=== PATIENT | female | born 1985 | race Caucasian/White ===

== ENCOUNTER 2017-02-11 07:12 | Inpatient (IN) | payer OTHER ==
[2017-02-11] MEDS ORDERED: PRENATAL VITAM1 EAC5 PO (07:56)
[2017-02-11 08:20] LABS: BASO % 0.2 % (0-2); EOS % 1.1 % (0-7); EOSINOPHIL ABSOLUTE COUNT 0.1 tho/cmm (0.0-0.7); HCT-HEMATOCRIT 31.1 % (34.0-49.0); HGB-HEMOGLOBIN 10.6 gm/dl (12.0-15.5); IMMATURE GRANULOCYTES ABSOLUTE 0.04 tho/cmm (0-0.03); IMMATURE GRANULOCYTES PERCENT 0.4 % (0-0.3); LYMPH % 20.4 % (20-45); LYMPH ABSOLUTE COUNT 2.3 tho/cmm (0.8-4.5); MCH (MEAN CORPUSCULAR HGB) 29.9 pg (28.0-32.0); MCHC MEAN CORPUSCULAR HGB CONC 34.1 % (32.0-36.0); MCV (MEAN CELL VOLUME) 87.6 fl (82.0-96.0); MEAN PLATELET VOLUME 8.7 cmc (9.4-12.4); MONO % 6.8 % (0-12); MONOCYTE ABSOLUTE COUNT 0.8 tho/cmm (0.0-1.2); NEUTROPHIL ABSOLUTE COUNT 7.9 tho/cmm (1.6-8.0); NEUTROPHIL-AUTOMATED 7.9 tho/cmm (1.6-8.0); NEUTROPHILS % 71.1 % (40-80); PLATELET COUNT 234 tho/cmm (150-450); RED BLOOD COUNT 3.55 mil/cmm (4.00-5.20); RED CELL DISTRIBUTION WIDTH 13.1 % (12.4-16.4)
[2017-02-12 06:21] LABS: BASO % 0.1 % (0-2); EOS % 0.6 % (0-7); EOSINOPHIL ABSOLUTE COUNT 0.1 tho/cmm (0.0-0.7); HCT-HEMATOCRIT 27.9 % (34.0-49.0); HGB-HEMOGLOBIN 9.3 gm/dl (12.0-15.5); IMMATURE GRANULOCYTES ABSOLUTE 0.04 tho/cmm (0-0.03); IMMATURE GRANULOCYTES PERCENT 0.2 % (0-0.3); LYMPH ABSOLUTE COUNT 3.3 tho/cmm (0.8-4.5); MCH (MEAN CORPUSCULAR HGB) 29.8 pg (28.0-32.0); MCHC MEAN CORPUSCULAR HGB CONC 33.3 % (32.0-36.0); MCV (MEAN CELL VOLUME) 89.4 fl (82.0-96.0); MONO % 9.6 % (0-12); MONOCYTE ABSOLUTE COUNT 1.6 tho/cmm (0.0-1.2); NEUTROPHIL ABSOLUTE COUNT 11.4 tho/cmm (1.6-8.0); NEUTROPHIL-AUTOMATED 11.4 tho/cmm (1.6-8.0); NEUTROPHILS % 69.5 % (40-80); PLATELET COUNT 277 tho/cmm (150-450); RED BLOOD COUNT 3.12 mil/cmm (4.00-5.20); RED CELL DISTRIBUTION WIDTH 13.4 % (12.4-16.4); WHITE BLOOD COUNT 16.4 tho/cmm (4.0-10.0)
[2017-02-12] MEDS ORDERED: MOTRIN IB200 M1 PO (19:16)
[2017-02-12] MEDS ORDERED: PERCOCET 5-3251 EACH PO (19:17)
[2017-02-13] MEDS ORDERED: IBUPROFEN800 M1 PO (11:25)
== END 2017-02-13 12:40 | DRG 765 ==
LOC: LDR 07:12 → OBGD 11:15
PROVIDERS: ADMIT Obstetrics & Gynecology
PROC: 10D00Z1 Extraction of Products of Conception, Low, Open Approach (ICD-10-PCS; principal; 2017-02-11)
DX: O34.211 Maternal care for low transverse scar from previous cesarean delivery (principal); O23.43 Unspecified infection of urinary tract in pregnancy, third trimester; Z37.0 Single live birth; Z3A.39 39 weeks gestation of pregnancy; B95.2 Enterococcus as the cause of diseases classified elsewhere; O24.420 Gestational diabetes mellitus in childbirth, diet controlled; O99.334 Smoking (tobacco) complicating childbirth; F17.210 Nicotine dependence, cigarettes, uncomplicated
CPT/HCPCS: J0690; J1170; J2590; J2795; J7050